=== PATIENT | female | born 1995 | race Caucasian/White ===

== ENCOUNTER 2019-09-03 08:37 | Emergency (ER) | payer SELFPAY ==
[~2019-09-03] VITALS: Ht 160 cm; Wt 86.7 kg
--- NOTE | 2019-09-03 08:57 | NUR ---
24 Y/O FEMALE PRESENTS TO ED WITH C/O N/V/D. PER PT "LAST NIGHT ABOUT 8:30 I STARTED THROWING UP. IT WAS AFTER I ATE DINNER. TODAY I'VE HAD DIARRHEA AND THROWN UP." PT PLACED ON CONT PULSE OX,NIBP. PT EDUCATED REGARDING STOOL SAMPLE MAY BE REQUESTED. NO C/O TRAUMA, SYNCOPE, CP, SOB.
[2019-09-03] MEDS ORDERED: SODIUM CHLORIDE 0.9% 1,000ML IVBOLUS ONE (09:30)
[2019-09-03] MEDS ORDERED: ONDANSETRON 2MG/ML, 2ML IVPush ONE (09:30)
[2019-09-03] MEDS ORDERED: SODIUM CHLORIDE FLUSH 10ML SYR IVF ONE (09:30)
[2019-09-03 09:38] LABS: BASOPHILS # (AUTO) 0.01 x10^3/uL (0-0.1); BASOPHILS % (AUTO) 0 % (0-1); EOSINOPHILS % (AUTO) 0 % (1-7); LYMPHOCYTES # (AUTO) 0.54 x10^3/uL (1-3.4); LYMPHOCYTES % (AUTO) 6 % (22-44); MD NO; MEAN CORPUSCULAR HGB CONC 33.8 g/dL (32.4-35.8); MEAN CORPUSCULAR VOLUME 85.7 fL (80-100); MEAN PLATELET VOLUME 9.3 fL (7.4-10.4); MONOCYTES # (AUTO) 0.23 x10^3/uL (0.2-0.8); MONOCYTES % (AUTO) 2 % (2-9); NEUTROPHILS # (AUTO) 9.05 x10^3/uL (1.8-6.8); NEUTROPHILS % (AUTO) 92 % (42-75); PLATELET COUNT 258 x10^3/uL (130-400); RED BLOOD COUNT 4.85 x10^6/uL (3.82-5.3); RED CELL DISTRIBUTION WIDTH 13.6 % (9.6-15.2)
[2019-09-03] MEDS ORDERED: ONDANSETRON 2MG/ML, 2ML ONE (09:47)
[2019-09-03 09:51] LABS: ANION GAP 6 mmol/L (5-15); CALCIUM 8.9 mg/dL (8.5-10.1); CHLORIDE 110 mmol/L (98-107); CREATININE 0.78 mg/dL (0.55-1.02)
[2019-09-03 09:52] LABS: ALANINE AMINOTRANSFERASE 54 U/L (12-78); ALBUMIN 3.7 g/dL (3.4-5.0)
[2019-09-03 09:53] LABS: ALKALINE PHOSPHATASE 77 U/L (45-117); BILIRUBIN,TOTAL 1.4 mg/dL (0.2-1.0); TOTAL PROTEIN 7.8 g/dL (6.4-8.2)
[2019-09-03 09:57] VITALS: BP 109/69
--- NOTE | 2019-09-03 09:57 | NUR ---
PIV ESTABLISHED. PT TOLERATED WITH NON COMPLICATIONS. NADN. VSS. WILL CONTINUE TO MONITOR. NO NEEDS REQUESTED AT THIS TIME.
[2019-09-03] MEDS ORDERED: NAPROXEN 500 MG TABLET ONE (10:43)
[2019-09-03] MEDS ORDERED: NAPROXEN 500 MG TABLET PO ONE (11:00)
--- NOTE | 2019-09-03 11:21 | NUR ---
LATE ENTRY FOR 1100 Patient/Caregiver given discharge instructions and they have confirmed that they understand the instructions. Patient ambulatory with steady gait. PT LEFT WITH ALL PERSONAL BELONGINS. PIV D/C WITH TIP INTACT. PRESSURE DRESSING APPLIED.
--- NOTE | 2019-09-03 11:27 | NUR ---
LATE ENTRY FOR 1050 PT REFUSED NAPROXEN. PT STATES "I'LL JUST FILL MY RX."
== END 2019-09-03 11:23 | disposition home or self-care (01) ==
LOC: ED 10:29
DX: R11.2 Nausea with vomiting, unspecified (principal); R19.7 Diarrhea, unspecified; R10.13 Epigastric pain
CPT/HCPCS: 36415; 80053; 83605; 83690; 85025; 96361; 96374; 99283; J2405; J7030